=== PATIENT | female | born 1970 | race Asian ===

== ENCOUNTER 2017-09-17 21:50 | Emergency (ER) | payer MEDICAID ==
[~2017-09-17] VITALS: Ht 165.1 cm; Wt 65.8 kg
[2017-09-17 21:54] VITALS: BP 124/74
--- NOTE | 2017-09-17 21:59 | NUR ---
TO LOBBY A/W BED, AMBULATORY, VSS, CHRISTOPHER NOTED
--- NOTE | 2017-09-17 22:04 | NUR ---
pt ambulated to bed 10
[2017-09-17] MEDS ORDERED: IBUPROFEN 600 MG TAB PO ONE (22:05)
--- NOTE | 2017-09-17 22:10 | NUR ---
PATIENT IS A 49 Y/O FEMALE WHO PRESENTS TO THE ED C/O FEVER. PT STATES THAT IT HAS BEEN GOING ON X4 DAYS AND TOOK MOTRIN. PT REPORTS 2/10 ACHING UPPER ABD PAIN THAT DOES NOT RADIATE. PT DENIES CP, SOB, N/V/D. PT AAOX4, RR EVEN/UNLABORED. PT REPOSITIONED FOR COMFORT, BED IN LOWEST POSITION. ER MD DR. MCKEON NOTIFIED. WILL CONTINUE TO MONITOR.
[2017-09-17] MEDS ORDERED: KETOROLAC 60 MG/2 ML VIAL IM ONE (23:05)
[2017-09-17] MEDS ORDERED: LEVOFLOXACIN 500 MG TAB PO ONE (23:05)
[2017-09-17] MEDS ORDERED: PHENAZOPYRIDINE 100 MG TAB PO ONE (23:05)
--- NOTE | 2017-09-17 23:10 | NUR ---
PATIENT RESTING AT THIS TIME. NO SIGNS OF DISTRESS.
[2017-09-18 00:05] VITALS: BP 121/75
--- NOTE | 2017-09-18 00:05 | NUR ---
Patient discharged with v/s stable. Written and verbal after care instructions given and explained. Patient alert, oriented and verbalized understanding of instructions. Ambulatory with steady gait. All questions addressed prior to discharge. ID band removed. Patient advised to follow up with PMD. Rx of PYRIDIUM 100MG AND KEFLFEX 500MG given. Patient educated on indication of medication including possible reaction and side effects. Opportunity to ask questions provided and answered.
== END 2017-09-18 00:05 | disposition home or self-care (01) ==
LOC: MED 21:50
DX: N39.0 Urinary tract infection, site not specified (principal)
CPT/HCPCS: 81002; 81025; 96372; 99284; J1885